=== PATIENT | female | born 1985 | race American Indian/Alaskan Native ===

== ENCOUNTER 2016-05-22 20:47 | Emergency (ER) | payer OTHER ==
--- NOTE | 2016-05-22 23:12 | Emergency Department Report ---
HPI - General Chief Complaint: Adult Asthma Time Seen by Provider: 05/22/16 23:08 - HPI HPI: Patient here complaining that her right side of her face is swollen was started yesterday and she is having toothache right lower back tooth. She reports the pain is 10 out of 10 and throbbing and she took [id number] medication which did not help. She is also reporting that she is having shortness of breath with wheezing and she ran out of her albuterol nebulizer and would like a refill. Denies any nausea or vomiting. Denies any fever or chills. She reports some coughing. She reports that she found a dentist and they were about to be closed and was sent to emergency room to get antibiotic and that she has an appointment for next ED Past Medical Hx - Past Medical History Previous Medical History?: Yes Hx Asthma: Yes - Surgical History Past Surgical History?: No - Family History Family history: hypertension - Social History Smoking Status: Never Smoker Substance Use Type: None - Medications Home Medications: Home Medications Medication Instructions Recorded Confirmed Last Taken Type Acetaminophen/Codeine [Tylenol #3] 1 tab PO Q6H PRN #20 tab 05/23/16 Unknown Rx Albuterol Sulfate [Ventolin HFA] 2 puff IH Q4H PRN #1 hfa.aer.ad 05/23/16 Unknown Rx Amoxicillin [Amoxicillin TAB] 875 mg PO BID #20 tablet 05/23/16 Unknown Rx predniSONE [Deltasone] 50 mg PO QDAY #5 tab 05/23/16 Unknown Rx ED Review of Systems ROS: Stated complaint: MOUTH PAIN/ASTHMA Other details as noted in HPI Comment: All other systems reviewed and negative Constitutional: denies: chills, fever Eyes: denies: eye pain, eye discharge ENT: dental pain. denies: ear pain, throat pain, congestion Respiratory: cough, shortness of breath, SOB with exertion, wheezing. denies: SOB at rest, stridor Cardiovascular: denies: chest pain, palpitations, edema, syncope Gastrointestinal: denies: abdominal pain, nausea, vomiting, diarrhea Musculoskeletal: denies: back pain, arthralgia Skin: denies: rash Neurological: denies: headache, numbness, paresthesias, confusion, abnormal gait , vertigo Physical Exam - Physical Exam Vital Signs: Vital Signs 05/22/16 21:25 Temperature 98.4 F Pulse Rate 77 Respiratory 16 Rate Blood Pressure 131/67 O2 Sat by Pulse 99 Oximetry General: This is a 30-year-old obese female Physical Exam: Head: Normocephalic atraumatic Mouth: Moist, no pharyngeal exudate or erythema. Uvula is midline and oral airway is patent. No gingival enlargement. dental tenderness with erythema to #32 tooth. No induration or fluctuance. Mild right facial swelling without induration or fluctuance. No peritonsillar abscesses. Neck: Supple, no C-spine tenderness, no tracheal deviation. Nontender to palpate. no adenopathy Ears: Bilateral TMs congested without erythema .bilateral EAC without any redness swelling or drainage Eyes: Bilateral pupils equal and reactive to light, bilateral EOM intact. Bilateral sclera and conjunctiva without injection. Normal accommodation Nose: Mucosa moist, positive congestion no erythema. Positive clear drainage. maxillary and frontal sinus non-tender to palpate. Lungs: Scattered wheezing throughout all lung quintana. Dry cough. Normal work of breathing extremity; No CCE. +2 pulses. No neurovascular compromise Cardiovascular: S1-S2, regular rate rhythm. No murmurs. Skin: clean Dry and intact no rash no lesions Psych: Normal mood and behavior ED Course Vital Signs 05/22/16 21:25 Temperature 98.4 F Pulse Rate 77 Respiratory 16 Rate Blood Pressure 131/67 O2 Sat by Pulse 99 Oximetry - Reevaluation(s) Reevaluation #1: 05/23/16 00:31 Patient given [facility] 5/325 2 tablets, Deltasone 60 mg tablets and DuoNeb 1 nebulizer in emergency room. ED Medical Decision Making - Medical Decision Making ED course: Patient with oral cellulitis, toothache and mild asthma exacerbation. Patient received DuoNeb times one nebulized treatment in emergency room. She also received Deltasone 60 mg and [facility] 5/325 mg 2 tablets in emergency room. Reports that her tooth ache is better and upper reevaluation of lungs she has no wheezing. I discussed with patient her diagnoses and treatment plan and she is in agreement. Patient discharged home with prescription for Ventolin HFA, Tylenol 3,Amoxil and prednisone. Critical care attestation.: If time is entered above; I have spent that time in minutes in the direct care of this critically ill patient, excluding procedure time. ED Disposition Clinical Impression: Toothache, Oral cellulitis Asthma exacerbation attacks Qualifiers: Asthma severity: mild intermittent Qualified Code(s): J45.21 - Mild intermittent asthma with (acute) exacerbation Disposition: DISCHARGED TO HOME OR SELFCARE Is pt being admited?: No Does the pt Need Aspirin: No Condition: Stable Instructions: Asthma (ED), Toothache (ED), Cellulitis (ED) Additional Instructions: Please take medication as prescribed Follow-up with your dentist appointment do not drive motor vehicle or operate heavy machinery while taking Tylenol 3 Prescriptions: Acetaminophen/Codeine [Tylenol #3] 1 tab PO Q6H PRN #20 tab PRN Reason: Toothache Albuterol Sulfate [Ventolin HFA] 2 puff IH Q4H PRN #1 hfa.aer.ad PRN Reason: Shortness Of Breath Amoxicillin [Amoxicillin TAB] 875 mg PO BID #20 tablet predniSONE [Deltasone] 50 mg PO QDAY #5 tab Referrals: PRIMARY CARE, [Primary Care Provider] - 05/26/16 [facility] [Outside] - 05/26/16 [facility] [Outside] - 05/26/16 Forms: Work/School Release Form(ED), Accompanied Note
[2016-05-22] MEDS ORDERED: NORCO 5/325 PO ONE (23:13)
[2016-05-22] MEDS ORDERED: DELTASONE PO ONE ×2 (23:15→23:32)
[2016-05-22] MEDS ORDERED: DUONEB 0.5 MG-3 MG/3 ML SOLN IH ONE (23:15)
[2016-05-23 00:47] VITALS: BP 122/75
== END 2016-05-23 00:49 | disposition home or self-care (01) ==
LOC: ED 20:47
DX: J45.31 Mild persistent asthma with (acute) exacerbation (principal); K08.89 Other specified disorders of teeth and supporting structures; K12.2 Cellulitis and abscess of mouth; J45.909 Unspecified asthma, uncomplicated
CPT/HCPCS: 99283; J7512

== ENCOUNTER 2016-07-04 02:07 | Emergency (ER) | payer SELFPAY ==
[2016-07-04 02:44] VITALS: BP 129/75
== END 2016-07-04 03:50 | disposition left against medical advice (07) ==
LOC: ED 02:07
DX: R22.0 Localized swelling, mass and lump, head (principal); K08.89 Other specified disorders of teeth and supporting structures; R50.9 Fever, unspecified; J45.909 Unspecified asthma, uncomplicated; Z53.21 Procedure and treatment not carried out due to patient leaving prior to being seen by health care provider